=== PATIENT | female | born 1975 | race Caucasian/White ===

== ENCOUNTER 2016-10-25 19:17 | Emergency (ER) | payer OTHER ==
[2016-10-25] MEDS ORDERED: PROMETHAZINE HCL 25 MG/ML VIAL IM ONE (19:42)
[2016-10-25] MEDS ORDERED: KETOROLAC 30 MG/ML VIAL IM ONE (19:42)
[2016-10-25] MEDS ORDERED: DIAZEPAM 5 MG/1 ML TUBX IM ONE (19:42)
[2016-10-25] MEDS ORDERED: HYDROMORPHONE HCL 1 MG/ML CPJ IM ONE (19:42)
--- NOTE | 2016-10-25 19:51 | Emergency Department Record ---
History of Present Illness - General Chief Complaint: Back Pain/Injury Stated Complaint: BACK PAIN Time Seen by Provider: 10/25/16 19:21 Source: Patient Mode of Arrival: Ambulatory Limitations: No limitations - History of Present Illness Initial Comments: pt has psoriatic arthritis and recently had to stop her humers . 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 in the mean time, pt fell on ice yesterday increasing her pain in her back. she was seen at an urgent care and had neg xrays of her l elbow which is where she landed. she is now hurting in her back. she does not want rxs, just shots to ease the pain. she has no numbness and no problems with her bowel or bladder. MD Complaint: Back pain, Back injury, Fall Onset/Timin -: Days(s) Place: Home Radiation: None Severity scale (1-10): 10 Quality: Aching Consistency: Constant, Getting worse Improves With: None Worsens With: None Context: Fall - Related Data Home Medications Medication Instructions Recorded Confirmed Last Taken Atenolol/Chlorthalidone 100 mg PO DAILY 04/03/15 10/25/16 06/10/16 [Atenolol-Chlorthalidone 100-25] Metformin HCl 500 mg PO BID tab 08/15/16 10/25/16 Unknown Trazodone HCl 50 mg PO DAILY tab 08/15/16 10/25/16 Unknown Allergies Allergy/AdvReac Type Severity Reaction Status Date / Time Penicillins Allergy Intermediate RASH Verified 06/10/16 16:40 tramadol HCl [From Ultram] AdvReac Intermediate Seizure Verified 06/10/16 16:40 Travel Screening - Travel/Exposure Within Last 30 Days Have you traveled within the last 30 days?: No Review of Systems Reviewed: No additional complaints except as noted below Constitutional: Reports: As per HPI. Denies: Chills, Fever, Malaise, Night sweats, Weakness, Weight change Eyes: Reports: As per HPI. Denies: Eye discharge, Eye pain, Photophobia, Vision change ENT: Reports: As per HPI. Denies: Congestion, Dental pain, Ear pain, Epistaxis , Hearing loss, Throat pain Respiratory: Reports: As per HPI. Denies: Cough, Dyspnea, Hemoptysis, Stridor, Wheezes Cardiovascular: Reports: As per HPI. Denies: Arrhythmia, Chest pain, Dyspnea on exertion, Edema, Murmurs, Orthopnea, Palpitations, Paroxysmal nocturnal dyspnea, Rheumatic Fever, Syncope Endocrine: Reports: As per HPI. Denies: Fatigue, Heat or cold intolerance, Polydipsia, Polyuria Gastrointestinal: Reports: As per HPI. Denies: Abdominal pain, Constipation, Diarrhea, Hematemesis, Hematochezia, Melena, Nausea, Vomiting Genitourinary: Reports: As per HPI. Denies: Abnormal menses, Discharge, Dyspareunia, Dysuria, Frequency, Hematuria, Incontinence, Retention, Urgency Musculoskeletal: Reports: As per HPI. Denies: Arthralgia, Back pain, Gout, Joint swelling, Myalgia, Neck pain Skin: Reports: As per HPI. Denies: Bruising, Change in color, Change in hair/ nails, Lesions, Pruritus, Rash Neurological: Reports: As per HPI. Denies: Abnormal gait, Confusion, Headache, Numbness, Paresthesias, Seizure, Tingling, Tremors, Vertigo, Weakness Psychiatric: Reports: As per HPI. Denies: Anxiety, Auditory hallucinations, Depression, Homicidal thoughts, Suicidal thoughts, Visual hallucinations Hematological/Lymphatic: Reports: As per HPI. Denies: Anemia, Blood Clots, Easy bleeding, Easy bruising, Swollen glands Past Medical History - SOCIAL HISTORY Smoking Status: Never smoker Alcohol Use: None Drug Use: None - RESPIRATORY Hx Respiratory Disorders: No - CARDIOVASCULAR Hx Cardio Disorders: Yes Hx Abnormal EKG: No Hx Chest Pain: No Hx CHF: No Hx Deep Vein Thrombosis: No Hx Heart Attack: No (The patient has no hx of cardiac issues.) Hx Hypertension: Yes Hx Palpitations: No - NEURO Hx Neuro Disorders: No - GI Hx GI Disorders: Yes Comment:: diarrhea - Hx Genitourinary Disorders: No - ENDOCRINE Hx Endocrine Disorders: No - MUSCULOSKELETAL Hx Musculoskeletal Disorders: Yes Comment:: Psoriatic Arthritis - PSYCH Hx Psych Problems: Yes Hx Anxiety: Yes (The patient has a long hx of anxiety.) - HEMATOLOGY/ONCOLOGY Hx Hematology/Oncology Disorders: No Family Medical History Any Significant Family History?: No Physical Exam - General General Appearance: Alert, Oriented x3, Cooperative, Mild distress - Head Head exam: Normal inspection - Eye Eye exam: Normal appearance, PERRL, EOMI Pupils: Normal accommodation - ENT ENT exam: Normal exam, Mucous membranes moist, Normal external ear exam, Normal orophraynx Ear exam: Normal external inspection. negative: External canal tenderness Nasal Exam: Normal inspection. negative: Discharge, Sinus tenderness Mouth exam: Normal external inspection, Tongue normal Teeth exam: Normal inspection. negative: Dental caries Throat exam: Normal inspection. negative: Tonsillar erythema, Tonsillar exudate - Neck Neck exam: Normal inspection, Full ROM. negative: Tenderness - Respiratory Respiratory exam: Normal lung sounds bilaterally. negative: Respiratory distress - Cardiovascular Cardiovascular Exam: Regular rate, Normal rhythm, Normal heart sounds - GI/Abdominal GI/Abdominal exam: Soft, Normal bowel sounds. negative: Tenderness - Rectal Rectal exam: Deferred - exam: Deferred - Extremities Extremities exam: Normal inspection, Full ROM, Normal capillary refill. negative: Tenderness - Back Back exam: Reports: Muscle spasm, Tenderness. Denies: Full ROM, Rash noted - Neurological Neurological exam: Alert, CN II-XII intact, Normal gait, Oriented X3 - Psychiatric Psychiatric exam: Normal affect, Normal mood - Skin Skin exam: Dry, Intact, Normal color, Warm Course Vital Signs 10/25/16 19:23 Temperature 98.3 F Pulse Rate [ 85 Pulse Ox Probe] Respiratory 16 Rate Blood Pressure 131/72 [Left Arm] Pulse Ox 99 - Reevaluation(s) Reevaluation #1: 10/25/16 20:30 pt feels much better Disposition Disposition: Discharge Clinical Impression: Strain of Lumbar Region Qualifiers: Encounter type: initial encounter Qualified Code(s): S39.012A - Strain of muscle, fascia and tendon of lower back, initial encounter Disposition: Home, Self-Care Condition: (1) Good Instructions: Low Back Strain (ED) Additional Instructions: follow up with tea and spice supervisor on thursday. return sooner if worse. Forms: Patient Portal Access
== END 2016-10-25 20:46 | disposition home or self-care (01) ==
LOC: ER 19:17
DX: S39.012A Strain of muscle, fascia and tendon of lower back, initial encounter (principal); L40.50 Arthropathic psoriasis, unspecified; W00.0XXA Fall on same level due to ice and snow, initial encounter; Y92.009 Unspecified place in unspecified non-institutional (private) residence as the place of occurrence of the external cause
CPT/HCPCS: 99283 ×2; 96372; J1885; J1170; J2550; J3360